=== PATIENT | male | born 1990 | race Two or more races ===

== ENCOUNTER 2024-11-04 22:59 | Emergency (ER) | payer OTHER ==
[~2024-11-04] VITALS: Ht 188 cm; Wt 86.2 kg
[2024-11-05] MEDS ORDERED: AMOXicillin 250 MG CAPSULE ONE (00:04)
[2024-11-05] MEDS: AMOXicillin 250 MG CAPSULE PO ONE (00:06)
[2024-11-05] MEDS ORDERED: AMOX250C PO (00:13)
[2024-11-05 00:18] VITALS: BP 139/60; O2SAT 98
== END 2024-11-05 00:18 | disposition home or self-care (01) ==
LOC: ER 23:08
DX: A49.1 Streptococcal infection, unspecified site (principal); R21 Rash and other nonspecific skin eruption; Z88.1 Allergy status to other antibiotic agents
CPT/HCPCS: A4606; A4663